=== PATIENT | male | born 1935 | race Caucasian/White ===

== ENCOUNTER 2017-06-30 07:17 | Observation (INO) | payer MEDICARE, OTHER ==
[~2017-06-30] VITALS: Ht 185.4 cm; Wt 80.3 kg
[2017-06-30] VITALS (18 sets, daily range): BP systolic 118–149; BP diastolic 54–74
--- NOTE | ~2017-06-30 | H ---
[address] [address] HISTORY AND PHYSICAL Name: PRATEEK BINGHAM Room: [address] Matt Guido#: [id number] Admission: 06/30/17 Attend Phys: Luis Fernando Cohen MD, Discharge: 07/01/17 Date of : 34 Report #: [id number] THIS REPORT FOR: //name// Please refer to the History and Physical performed in the physician's office. By: [id number] Records Staff BIANKA /MAURY
[~2017-06-30 07:17] MED LIST: ASPIRIN81 M2 PO; B COMPLEX-VITA1 EACH PO; B Complex-Vitamin PO; BENADRYL25 MG PO; CVS FISH OIL 11 EAC3 PO; FOLIC ACID1 MG PO; HYDROCHLOROTHIA25 M1 PO; IMDUR 30 MG TAB30 M1 PO; LOPRESSOR50 PO; MOBIC7.5 MG PO; MULTI VITAMIN1 EACH PO; NEXIUM20 M1 PO; NORVASC10 MG PO; PLAVIX 75 MG TA75 MG PO; PREDNISONE 20 M20 M1 PO; TRAMADOL 50 MG50 MG PO; VITAMIN D400 UNI1 PO; XALATAN2.5 ML OP; ZETIA10 MG PO; ZOCOR80 MG PO
[2017-06-30 08:16] LABS: HEMATOCRIT 38.2 % (42.0-52.0); HEMOGLOBIN 12.6 gm/dL (14.0-18.0); MCV 75.8 fL (80.0-100.0); MPV 9.1 fl. (7.2-11.1); RBC 5.04 mil/uL (4.50-6.00); WBC 7.3 thou/uL (4.0-11.0)
[2017-06-30 08:23] LABS: APTT 25.4 Seconds (25.0-31.3); INR 1.1; PROTIME 10.7 Seconds (9.20-11.50)
[2017-06-30 08:25] LABS: ANION GAP 16 mmol/L (7-16); BUN 19 mg/dL (7-18); CALCIUM 8.8 mg/dL (8.5-10.1); CHLORIDE 101 mmol/L (98-107); CO2 22 mmol/L (21-32); CREATININE 1.4 mg/dL (0.6-1.3); GLUCOSE 254 mg/dL (70-99); POTASSIUM 3.3 mmol/L (3.5-5.1); SODIUM 139 mmol/L (136-145)
[2017-06-30 08:29] LABS: ALBUMIN 3.8 g/dL (3.4-5.0); ALKALINE PHOSPHATASE 66 U/L (46-116); CHOLESTEROL 143 mg/dL (<200); HDL CHOLESTEROL 67 mg/dL (>40); LDL CHOLESTEROL 70 mg/dL (<100); SGOT 23 U/L (15-37); SGPT 32 U/L (30-65); TC:HDL 2.1 Ratio (Not establshd); TOTAL BILIRUBIN 0.7 mg/dL (<0.1-1.0); TOTAL PROTEIN 7.5 g/dL (6.4-8.2); TRIGLYCERIDE 30 mg/dL (<150); VLDL 6 mg/dL (<40)
[2017-06-30] MEDS ORDERED: NITROGLYCERIN0.4 MG SUBLING (08:36)
[2017-06-30 08:39] LABS: SERUM ASSESSMENT Clear
[2017-06-30] MEDS ORDERED: K-TAB ER8 MEQ PO (08:41)
[2017-06-30] MEDS ORDERED: XARELTO20 MG PO (08:44)
--- NOTE | 2017-06-30 16:01 | EKG ---
[place] [address] ELECTROCARDIOGRAM REPORT Name: PRATEEK BINGHAM Room: [address] ADM IN M.R.#: [id number] Admission: 06/30/17 Attend Phys: Luis Fernando Cohen MD, Discharge: Date of : 33 Report #: [id number] THIS REPORT FOR: //name// 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: [facility] : 1935 Requested By: Luis Fernando Cohen Order Number: [id number] Shavon MD: Luis Fernando Cohen Measurements Intervals [place] Rate: 76 P: [place]: QRS: 52 QRSD: 118 T: QT: 525 QTc: 591 Interpretive Statements Atrial fibrillation Nonspecific intraventricular conduction delay Borderline T abnormalities, diffuse leads No previous ECG available for comparison Electronically Signed On 06-30-2017 16:01:31 CDT by Luis Fernando Cohen [email or web address] <ELECTRONICALLY SIGNED> By: Luis Fernando Cohen MD, [facility] 06/30/17 1601 D: [id number] Luis Fernando Cohen MD, FACC /EPI
--- NOTE | 2017-06-30 16:05 | NUR ---
ASSUMED PT CARE AT 1440. ALERT AWAKE ORIENTED X 4. APPROPRIATE BEHAVIOR . 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 NO COMPLAIN OF PAIN. VITALS SIGNS BP 118/55 HR 75 RESP 14 TEMP 97.6 ORALLY, O2 SATURATION 98 RA. IV FLUID INFUSING AT 125CC/HR. ADMISSION HX DONE AT BEDSIDE. PT ANSWERED ALL QUESTION . A FIB ON THE MONITOR. HX OF A FIB NOTED FROM CHART. 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 L GROIN SITE INTACT, CLEAN, NOP DRAINAGE, NO PAIN, NO BLEEDING. PRESSURE DRESSING ON WITH TRANSPARENT DRESSING. SNACK OFFERED, EDUCATION PROVIDED REGARDING POST PROCEDURE PRECAUTIONS. PATIENT STATES UNDERSTANDING. PLAN TO CONTINUOUSLY MEASURE VS Q 15 MINUTES AND INSPECT L GROIN SITE. WILL CONTINUE TO MONITOR.
--- NOTE | 2017-06-30 16:07 | EKG ---
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: : 1935 Requested By: Luis Fernando Cohen Order Number: [id number] Reading MD: Luis Fernando Cohen Measurements Intervals [place] Rate: 75 P: [place]: QRS: 80 QRSD: 120 T: -90 QT: 615 QTc: 688 Interpretive Statements Atrial fibrillation Probable LVH with secondary repol abnrm Possible inferior infarct, age indeterminate Prolonged QT interval Baseline wander in lead(s) I,aVL,V1,V3,V4,V5 No previous ECG available for comparison Electronically Signed On 06-30-2017 16:06:55 CDT by Luis Fernando Cohen [email or web address] <ELECTRONICALLY SIGNED> By: Luis Fernando Cohen MD, [facility] 06/30/17 1606 1347 1347 Luis Fernando Cohen MD, [facility] /EPI
--- NOTE | 2017-06-30 18:50 | NUR ---
PATIENT CONDITION IS STABLE. A FIB ON THE MONITOR. NO SIGN OF SYMPTOMS OF PAIN. VITALS SIGNS TAKEN EVERY 15 MINUTES ARE STABLE. MADE COMFORTABLE. ASKED FOR SOME PAIN MEDICAITON , DR JHAVERI CONTACTED ORDERED SOME AMBIEN PRN ORDER ENTERED ON THE COMPUTER. PATIENT R GROIN DRESSING IS INTACT. NO BLEEDING. NO PAIN. PATIENT CONSUMED DINER, ON BED REST. BED IN REVERSE [place] POSITION.
[2017-07-01] VITALS: BP 126/55
[2017-07-01 04:34] VITALS: BP 112/55
[2017-07-01 05:03] LABS: HEMATOCRIT 34.3 % (42.0-52.0); HEMOGLOBIN 11.1 gm/dL (14.0-18.0); MCH 24.9 pg (26.0-34.0); MCHC 32.5 g/dL (28.0-37.0); MCV 76.6 fL (80.0-100.0); MPV 9.6 fl. (7.2-11.1); RBC 4.48 mil/uL (4.50-6.00); RDW-CV 16.2 % (10.5-14.5); WBC 13.4 thou/uL (4.0-11.0)
--- NOTE | 2017-07-01 05:21 | NUR ---
PT CARE ASSUMED AFTER REPORT. ASSESSMENT COMPLETE. FIB/AFLUTTER ON MONITOR. DENIES PAIN. L GROIN SITE DRESSING C/D/I. NO BRUISING OR HEMATOMA NOTED. PT UP AD ERBECCA WITH STEADY GAIT. CALL LIGHT IN REACH. BED IN LOWEST POSITION. PROGRESSING TOWARDS GOALS.
[2017-07-01 05:50] LABS: ALBUMIN 3.4 g/dL (3.4-5.0); ALKALINE PHOSPHATASE 62 U/L (46-116); ANION GAP 14 mmol/L (7-16); BUN 22 mg/dL (7-18); CALCIUM 8.9 mg/dL (8.5-10.1); CHLORIDE 104 mmol/L (98-107); CO2 23 mmol/L (21-32); CREATININE 1.1 mg/dL (0.6-1.3); GLUCOSE 203 mg/dL (70-99); POTASSIUM 3.3 mmol/L (3.5-5.1); SGOT 20 U/L (15-37); SGPT 25 U/L (30-65); SODIUM 141 mmol/L (136-145); TOTAL BILIRUBIN 0.4 mg/dL (<0.1-1.0); TOTAL PROTEIN 6.3 g/dL (6.4-8.2); TROPONIN-I LEVEL <0.06 ng/mL (<0.06)
--- NOTE | 2017-07-01 08:30 | NUR ---
ASSUMED PT. CARE AND RECEIVED REPORT AT 0730. PT A/OX4,VSS, MONITOR ON TRACING AFIB. PT. DENIES CURRENT PAIN/SOB. UP IN ROOM AMBULATING, UP TO CHAIR FOR BREAKFAST. LEFT GROIND DRESSING C/D/I. FULL ASSESSMENT COMPLETED, REFER TO CHARTING. CALL LIGHT IN REACH, WILL CONTINUE WITH PLAN OF CARE.
[2017-07-01 08:45] VITALS: BP 147/73
[2017-07-01 09:04] VITALS: BP 132/62
--- NOTE | 2017-07-01 11:05 | EKG ---
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: : 1935 Requested By: Luis Fernando Cohen Order Number: [id number] Reading MD: Thomas Leigh Measurements Intervals [place] Rate: 59 P: [place]: QRS: 52 QRSD: 113 T: QT: 559 QTc: 554 Interpretive Statements Atrial fibrillation Inferior infarct, old Lateral leads are also involved Prolonged QT interval Compared to ECG 06/30/2017 13:47:04 No significant changes Electronically Signed On 07-01-2017 11:05:10 CDT by Thomas Leigh [email or web address] <ELECTRONICALLY SIGNED> By: Thomas Leigh MD, [facility] 07/01/17 1105 0840 0840 Thomas Leigh MD, [facility] /EPI
--- NOTE | 2017-07-01 11:24 | NUR ---
CM SPOKE TO THE PATIENT TO DISCUSS HOME SITUATION, DISCHARGE PLANNING, AND TO INFORM OF THE ROLE OF CM. PATIENT ALERT, ORIENTED, AND INDEPENDENT WITH ADL'S. PATIENT DROVE SELF TO HOSPITAL. PATIENT RESIDES AT HOME ALONE. PATIENT USES 0 DME. PATIENT HAS NO HX OF HH OR SNF, AND PLANS TO RETURN HOME AT D/C. PATIENT HOPEFUL TO RETURN HOME TODAY. CM WILL REMAIN AVAILABLE TO ASSIST AND FOLLOW NEEDED. CM WILL REMAIN AVAILABLE TO ASSIST AND FOLLOW NEEDED.
[2017-07-01 11:48] VITALS: BP 126/60
--- NOTE | 2017-07-01 15:25 | NUR ---
DC ORDER RECEIVED. DR. PALAFOX UP TO ROOM PRIOR TO DC TO DISCUSS ULTRASOUND RESULTS AND ASSESS PT. DC'D MARIA EUGENIA AND SACHA, WILL REASSESS AT F/U APPT. NEXT WEEK. PT. GIVEN DC INSTRUCTIONS, ALL QUESTIONS ANSWERED. PT. STAYING IN TOWN AT [facility] THIS EVENING TO ENSURE NO FURTHER COMPLICATIONS NOTED PRIOR TO RETURNING HOME. PT. LEFT VIA WHEEL CHAIR TO LEAVE IN PERSONAL VEHICLE, ALL BELONGINGS ACCOUNTED FOR.
--- NOTE | 2017-07-02 11:01 | CARD ---
[address] [address] CARDIAC CATH REPORT Name: PRATEEK BINGHAM Sanket Room: [address] Matt Guido#: [id number] Admission: 06/30/17 Attend Phys: Luis Fernando Cohen MD, Discharge: 07/01/17 Date of : 34 Report #: [id number] THIS REPORT FOR: //name// APPROVED REPORT Study performed: 06/30/2017 10:49:51 Patient Details Patient Status: Out-Patient Room #: The patient is a 81 year-old male Event Personnel Luis Fernando Cohen Chief Nuclear Medicine Technologist, Marlen Joe RN Head Of Academic Technology, Gale Key RTR Monitor, Donovan John (R) Bishop Sneed Diane Monitor, Sadia Moreno Head Of Academic Technology Procedures Performed Art Access - L femoral artery* , Selective Right and Left Coronary Angiography graft study and percutaneous coronary intervention with deployment o fa drug-eluting stent at the site of 90% stenosis of the distal vein graft to the right coronary artery Indication Dyspnea, Positive stress test Risk Factors Hypercholesterolemia, Hypertension Previous Procedures/Diagnoses Previous CABGPrevious PCI, Previous ND Admission/Lab Medications/Medications given during procedure Aspirin, Platelet Aff. Inhib., Angiomax bolus and infusion Procedure Narrative The patient was brought electively to the Cardiac Catheterization Laboratory and was prepped and draped in a sterile manner. The left femoral was infiltrated with subcutaneous anesthesia. A [place] 6 FR sheath was inserted into the left femoral artery. Coronary angiography was performed using coronary diagnostic catheters. The right coronary system was accessed and visualized with a Diagnostic RCB 6FR catheter. The left coronary system was accessed and visualized with a Diagnostic JL 4 6 FR catheter. Pre-demployment femoral angiogram was performed . Closure device was deployed with a 6 [place] [address] CARDIAC CATH REPORT Name: PRATEEK BINGHAM Sanket Room: [address] Matt Guido#: [id number] Admission: 06/30/17 Attend Phys: Luis Fernando Cohen MD, Discharge: 07/01/17 Date of : 34 Report #: [id number] Intraoperative Conscious Sedation Sedation start time: 11:24 Case end Time: 12:49 Fentanyl 25 mcg Versed 1 mg Fluoro Time: 30.9 minutes Dose: DAP 837888 cGycm2 3445.32 mGy Contrast Type and Amount: Visipaque 585 ml [place] Artery Percent Stenosis #1 patent saphenous vein graft the distal right coronary artery with 30% proximal 60% mid and 90% distal anastomotic stenosis with the posterior descending branch. The anastomosis with the posterolateral branch was widely patent #2 two additional completely obstructed vein grafts at their origin Diagnostic Cath Left Main 30% distal narrowing LAD 30% proximal narrowing with 75% mid vessel stenosis Circumflex 100% proximal Right Coronary 100% proximal stenosis by prior cineangiograms Hemodynamics The aortic pressure is 143/65 mmHg with a mean of mmHg. PCI Technique Lesion Percutaneous coronary intervention was performed on the SVG TO THE PDA OF THE RIGHT. The lesion stenosis prior to intervention was 90% with JAROCHO 3 flow. A 6Fr AR 1 Guide Catheter was used to engage the RCA ostium. A IG: ProwaterFlex 180CM Interventional Guidewire was used to cross the lesion. BALLOON DILATION A Balloon catheter Mini Trek RX 2.0 X 12 was inserted and inflated up to 8.00atm for 12seconds. Additional Inflation: 12.00atm for 16seconds. STENT DEPLOYMENT A drug-eluting stent Xience Alpine RX 2.25X08 was inserted and inflated up to 5.00atm for 9seconds. Additional Inflation: 6.00atm for 8seconds. [place] [address] CARDIAC CATH REPORT Name: ZACHERYPRATEEK Coles [address] [id number] Admission: 06/30/17 Attend Phys: Luis Fernando Cohen MD, Discharge: 07/01/17 Date of : 34 Report #: [id number] POST STENT DEPLOYMENT BALLOON DILATION A Balloon catheter NC Trek RX 2.25 X 8 was inserted and inflated up to 12.00atm for 11seconds. Additional Inflation: 15.00atm for 10seconds. Additional Inflation: 15.00atm for 11seconds. Final angiography reveals 10 % stenosis with JAROCHO 3 flow. COMMENTS Angiomax bolus and infusion during the procedure Conclusion #1 severe coronary disease characterized by the following: A 30% distal left main coronary artery narrowing, B 30% proximal and 75% mid LAD stenosis, C total occlusion of the nondominant circumflex proximally, D total occlusion of the dominant right coronary artery proximally #2 graft study characterized by the following: A patent saphenous vein graft to the right coronary artery with 30% proximal and 60% mid graft stenosis and 90% stenosis at the distal anastomotic site with the posterior descending branch with a widely patent anastomosis to the posterolateral branch B2 additional occluded saphenous vein grafts #3 successful percutaneous coronary intervention with deployment of drug-eluting stent at site of 90% distal vein graft stenosis at the anastomosis with the posterior descending branch of the dominant right coronary artery; there was 10% residual narrowing following stent deployment with JAROCHO-3 flow the distal vessel Recommendations Daily ASA with Plavix for at least one year Aggressive Medical Therapy Medications Administered Aspirin (any) [place] [address] CARDIAC CATH REPORT Name: PRATEEK BINGHAM Room: [address] M.R.#: [id number] Admission: 06/30/17 Attend Phys: Luis Fernando Cohen MD, Discharge: 07/01/17 Date of : 33 Report #: [id number] Clopidogrel Diagnostic Cath Approved by: Luis Fernando Cohen MD Date/Time: 07/02/17 at 1100 hrs. <ELECTRONICALLY SIGNED> By: Luis Fernando Cohen MD, FACC 07/02/17 1101 110 00Luis Fernando Cohen MD, FAC /INF
--- NOTE | 2017-07-02 12:25 | D ---
[address] [address] DISCHARGE SUMMARY Name: PRATEEK BINGHAM Sanket Room: [address] Matt Guido#: [id number] Admission: 06/30/17 Attend Phys: Luis Fernando Cohen MD, Discharge: 07/01/17 Date of : 34 Report #: [id number] THIS REPORT FOR: //name// CC: Luis Fernando Clifford DATE OF SERVICE: 07/01/2017 FINAL DISCHARGE DIAGNOSES: 1. Abnormal nuclear stress test with inducible inferior ischemia. 2. Coronary artery disease, status post remote coronary artery bypass grafting. 3. Status post percutaneous coronary intervention of the distal vein graft to the right coronary artery. 4. Hypertension. 5. Hyperlipoproteinemia. 6. Permanent atrial fibrillation. 7. Peripheral vascular disease. 8. Small right femoral arteriovenous fistula noted. PROCEDURES: 06/30/2017-left heart catheterization, selective coronary arteriography, graft study, and percutaneous coronary intervention with deployment of drug-eluting stent at the distal anastomosis between the vein graft and the distal right coronary artery. The patient is an 81-year-old male with complex coronary and peripheral vascular disease. He is status post remote coronary artery bypass grafting and subsequent percutaneous coronary interventions to the vein graft to the right coronary artery. He recently noted mild dyspnea on exertion and stress test demonstrated a small fixed inferior defect with significant david-infarction ischemia. He has underlying hypertension, hyperlipoproteinemia and permanent atrial fibrillation. In that context, I recommended cardiac catheterization, which was performed on 06/30/2017. That study demonstrated 70% mid LAD narrowing, total occlusion of the right coronary artery with a widely patent vein graft to the posterior descending and posterolateral branches. There was 90% stenosis of the distal vein graft as it anastomosed with the posterior descending branch. Given this data and the recent stress test, I elected to proceed with percutaneous coronary intervention, deploying one 2.25 x 8 mm Xience Alpine drug-eluting stent at the distal anastomotic site with 10% residual narrowing and JAROCHO 3 flow of the distal vessel. The patient did well post-procedurally with good hemostasis at the left femoral site and no [place] [address] DISCHARGE SUMMARY Name: PRATEEK BINGHAM Room: [address] Hay#: [id number] Admission: 06/30/17 Attend Phys: Luis Fernando Cohen MD, Discharge: 07/01/17 Date of : 34 Report #: [id number] He did have bilateral bruits, an ultrasound was performed, which revealed a tiny arteriovenous fistula in the left femoral site. He had no discomfort and there was no swelling in the region, no discomfort in the leg with walking. Given the minimal size and the likely spontaneous closure of this tiny arteriovenous fistula, recommended conservative therapy. I will plan to see the patient in the office in 1 week with duplex arterial evaluation with ultrasound of the left femoral site at that time. In the interim, he will be continued on single antiplatelet therapy and Xarelto will not be resumed. Thus, the patient is discharged to home on 07/01/2017, on the following medications: Amlodipine 10 mg daily, clopidogrel 75 mg daily, Nexium 40 mg at bedtime, Zetia 10 mg daily, folic acid 1 mg daily, hydrochlorothiazide 25 mg daily, latanoprost eyedrops or Xalatan at bedtime, metoprolol tartrate 50 mg b.i.d., multivitamin tablet daily, potassium 8 mEq t.i.d., simvastatin 40 mg at bedtime, and B complex vitamins. He also has p.r.n. sublingual nitroglycerin to be utilized if necessary. I will plan to see him in the office in 1 week with left femoral duplex evaluation with ultrasound of the left femoral artery at that time. He is to call if there are interim difficulties. Thus, the patient is discharged to home in stable condition on the aforementioned medications with followup as iterated above. <ELECTRONICALLY SIGNED> By: Luis Fernando Cohen MD, [facility] 07/02/17 1225 1436 1548Jojackelyn Cohen MD, [facility] /nt
== END 2017-07-01 15:00 | disposition home or self-care (01) ==
LOC: M.CL 07:17 → M.TBA-CV 13:16 → M.2W 13:16
PROVIDERS: ADMIT Internal Medicine
DX: I25.10 Atherosclerotic heart disease of native coronary artery without angina pectoris (principal); I10 Essential (primary) hypertension; E78.5 Hyperlipidemia, unspecified; I48.2 Chronic atrial fibrillation; I73.9 Peripheral vascular disease, unspecified; I77.0 Arteriovenous fistula, acquired; Z95.5 Presence of coronary angioplasty implant and graft

== ENCOUNTER → 2017-07-04 | Outpatient (CLI) | payer MEDICARE, OTHER ==
[~2017-07-04] MED LIST changes: +K-TAB ER8 MEQ PO; +NITROGLYCERIN0.4 MG SUBLING; +XARELTO20 MG PO
--- NOTE | 2017-07-04 16:37 | NUR ---
CALL RECIEVED FROM DR. PALAFOX'S REQUESTION INFUSION PREMED A PT FOR CTA WITH PRIOR KNOWN ALLERGY TO CT DYE OF RASH. PT BROUGHT TO INFUSION DIFFICULT IV START LINITED TO BILATERAL AC BECAUSE OF CT. IV STARTED AND PREMED COMPLETED. CT. NOTIFIED AND CAME AND TOOK PT FOR SCAN AT 1308.
--- NOTE | 2017-07-04 17:17 | 2DMMODE ---
[place] [address] 2 D/M-MODE ECHOCARDIOGRAM Name: PRATEEK BINGHAM Room: [facility]#: [id number] Admission: 07/04/17 Attend Phys: Nancy Devlin Discharge: Date of : 33 Date of Service: 07/04/17 1717 Report #: [id number] THIS REPORT FOR: //name// APPROVED REPORT Study performed: 07/04/2017 15:15:20 EXAM: Comprehensive 2D, Doppler, and color-flow Echocardiogram Patient Location: Out-Patient Status: routine BSA: 2.08 HR: 92 bpm BP: 145/78 mmHg Other Information Study Quality: Good Indications Dyspnea Cardiomyopathy 2D Dimensions LVEF(%): 60.41 (>50%) IVSd: 13.21 (7-11mm) LVOT Diam: 20.43 (18-24mm) LVDd: 44.36 mm PWd: 11.06 (7-11mm) Ascending Ao: 26.58 (22-36mm) LVDs: 30.13 (25-40mm) Aortic Root: 30.70 mm Staples's LVEF: 60.41 % Volumes Left Atrial Volume (Systole) LA ESV Index: 43.50 mL/m2 Aortic Valve AoV Peak Shiv.: 1.49 m/s AO Peak Gr.: 8.89 mmHg LVOT Max P.50 mmHg AO Mean Gr.: 5.26 mmHg LVOT Mean P.57 mmHg LVOT Max V: 0.94 m/s AO V2 VTI: 28.24 cm LVOT Mean V: 0.57 m/s TONY (VTI): 2.29 cm2 LVOT V1 VTI: 19.75 cm Mitral Valve E/A Ratio: 3.73 [place] [address] 2 D/M-MODE ECHOCARDIOGRAM Name: PRATEEK BINGHAM Room: [facility]#: [id number] Admission: 07/04/17 Attend Phys: Nancy Devlin Discharge: Date of : 33 Date of Service: 07/04/17 1717 Report #: [id number] MV Decel. Time: 176.12 ms MV E Max Shiv.: 1.19 m/s MV PHT: 51.07 ms MVA (PHT): 4.31 cm2 TDI E/Lateral E': 7.00 E/Medial E': 9.92 Medial E' Shiv.: 0.12 m/s Lateral E' Shiv.: 0.17 m/s Pulmonary Valve PV Peak Shiv.: 1.03 m/s PV Peak Gr.: 4.27 mmHg Tricuspid Valve TR Peak Gr.: 35.09 mmHg RVSP: 40.09 mmHg Left Ventricle The left ventricle is normal size. There is normal LV segmental wall motion. Mild concentric left ventricular hypertrophy. Left ventricular systolic function is normal. The left ventricular ejection fraction is within the normal range. LVEF is 50-55%. The left ventricular diastolic function is normal. Right Ventricle The right ventricle is normal size. The right ventricular systolic function is normal. Atria Left atrium is moderately dilated. Right atrium is mildly dilated. Aortic Valve Aortic valve is mildly calcified. No aortic regurgitation is present. There is no aortic valvular stenosis. Mitral Valve The mitral valve is normal in structure. Mild mitral regurgitation. No evidence of mitral valve stenosis. Tricuspid Valve The tricuspid valve is normal in structure. Mild to moderate tricuspid regurgitation. The RVSP is __40 mmHg. Pulmonic Valve The pulmonary valve is normal in structure. There is no pulmonic [place] [address] 2 D/M-MODE ECHOCARDIOGRAM Name: PRATEEK BINGHAM Room: [facility]#: [id number] Admission: 07/04/17 Attend Phys: Nancy Devlin Discharge: Date of : 33 Date of Service: 07/04/17 1717 Report #: [id number] Great Vessels The aortic root is normal in size. IVC is normal in size and collapses with >50% inspiration Pericardium There is no pericardial effusion. <Conclusion> Mild concentric left ventricular hypertrophy. LVEF is 50-55%. Left atrium is moderately dilated. Aortic valve is mildly calcified. Mild mitral regurgitation. Mild to moderate tricuspid regurgitation. The RVSP is __40 mmHg. <ELECTRONICALLY SIGNED> By: Gumaro Sosa MD, FACC 07/04/171716 16 16 Gumaro Sosa MD, FACC /INF
== END ==
LOC: M.INFUS 11:17 → M.CRD 11:17
DX: I08.1 Rheumatic disorders of both mitral and tricuspid valves (principal); I25.10 Atherosclerotic heart disease of native coronary artery without angina pectoris; I73.9 Peripheral vascular disease, unspecified; I70.90 Unspecified atherosclerosis; I25.5 Ischemic cardiomyopathy